=== PATIENT | female | born 2000 | race African-American/Black ===

== ENCOUNTER 2021-07-14 17:56 | Emergency (ER) | payer MEDICAID ==
[~2021-07-14] VITALS: Ht 157.5 cm; Wt 51.0 kg
[~2021-07-14 17:56] MED LIST: LORA-250 MT
[2021-07-14 18:02] VITALS: BP 124/70
[2021-07-14] MEDS ORDERED: SERTRALINE HCL 100MG TABLET PO STA (18:37)
[2021-07-14] MEDS ORDERED: SERT100T MT (18:38)
== END 2021-07-14 19:21 | disposition home or self-care (01) ==
LOC: ER 17:56
DX: Z76.0 Encounter for issue of repeat prescription (principal); F41.9 Anxiety disorder, unspecified
CPT/HCPCS: 99283

== ENCOUNTER 2022-03-09 15:41 | Emergency (ER) | payer MEDICAID ==
[~2022-03-09] VITALS: Ht 162.6 cm; Wt 75.0 kg
[~2022-03-09 15:41] MED LIST changes: +SERT100T MT
[2022-03-09 20:11] LABS: CLARITY URINE CLOUDY (CLEAR); COLOR URINE YELLOW (YELLOW); KETONES URINE TRACE (NEGATIVE); LEUKOCYTE ESTERASE URINE 2+ (NEGATIVE); NITRITE URINE POSITIVE (NEGATIVE); OCCULT BLOOD URINE 1+ (NEGATIVE); PH URINE 5.5 (4.5-8.0); PROTEIN URINE 1+ (NEGATIVE); SPECIFIC GRAVITY URINE 1.025 (1.005-1.030)
[2022-03-09] MEDS ORDERED: CEPH500T MT (21:12)
[2022-03-09] MEDS ORDERED: CEPHALEXIN 250MG CAPSULE PO ONE (21:15)
[2022-03-09 22:11] VITALS: BP 121/73
== END 2022-03-09 22:11 | disposition home or self-care (01) ==
LOC: ER 15:41
DX: N39.0 Urinary tract infection, site not specified (principal); F41.9 Anxiety disorder, unspecified
CPT/HCPCS: 81003; 81025; 87077; 87186; 99283

== ENCOUNTER 2022-09-16 17:57 | Emergency (ER) | payer MEDICAID ==
[~2022-09-16] VITALS: Ht 157.5 cm; Wt 54.0 kg
[~2022-09-16 17:57] MED LIST changes: +CEPH500T MT
[2022-09-16 18:03] VITALS: BP 115/83
[2022-09-16] MEDS ORDERED: ACETAMINOPHEN 325MG TABLET PO ONE (18:45)
[2022-09-16 21:09] LABS: CLARITY URINE CLEAR (CLEAR); COLOR URINE YELLOW (YELLOW); KETONES URINE 3+ (NEGATIVE); LEUKOCYTE ESTERASE URINE 2+ (NEGATIVE); NITRITE URINE NEGATIVE (NEGATIVE); OCCULT BLOOD URINE NEGATIVE (NEGATIVE); PH URINE 6.5 (4.5-8.0); PROTEIN URINE 1+ (NEGATIVE)
[2022-09-16] MEDS: ACETAMINOPHEN 325MG TABLET PO NR ×3 (21:44→23:29)
[2022-09-16] MEDS ORDERED: DOXYCYCLINE HYCLATE 100MG CAPSULE PO ONE (22:45)
[2022-09-16] MEDS ORDERED: CEFTRIAXONE SODIUM 500 MG/VIAL IM ONE (22:45)
[2022-09-16] MEDS ORDERED: DIF15 MT (23:15)
[2022-09-16] MEDS ORDERED: ACET-2708 MT (23:15)
[2022-09-16] MEDS ORDERED: DOXY-326 MT (23:15)
[2022-09-20 04:12] LABS: NEISSERIA GONORRHOEAE NAA Negative (Negative)
== END 2022-09-16 23:30 | disposition home or self-care (01) ==
LOC: ER 17:57
DX: N39.0 Urinary tract infection, site not specified (principal); B37.9 Candidiasis, unspecified; N89.8 Other specified noninflammatory disorders of vagina; F41.9 Anxiety disorder, unspecified; Z20.9 Contact with and (suspected) exposure to unspecified communicable disease
CPT/HCPCS: 81003; 81025; 87210; 87491; 87591; 96372; 99284; J0696; Z7610